=== PATIENT | male | born 1960 | race Two or more races ===

== ENCOUNTER 2019-09-08 08:39 | Inpatient (IN) | payer MEDICAID, OTHER ==
[~2019-09-08] VITALS: Ht 152.4 cm; Wt 53.6 kg
[2019-09-08] MEDS ORDERED: SODIUM CHLORIDE 0.9% 500 ML IVB ONE (08:44)
[2019-09-08 09:39] LABS: Hemoglobin 12.4 g/dL (13.5-17.5); Mean Corpuscular Hemoglobin 31.2 pg (28.0-32.0); Mean Corpuscular Hgb Conc. 33.5 g/dL (32.0-36.0); Platelet Count (auto) 201 10^3/uL (140-450); Red Blood Cells 3.98 10^6/uL (4.5-5.90); Red Cell Distribution Width 14.1 % (11.8-14.3); White Blood Cell 10.9 10^3/uL (4.4-10.8)
[2019-09-08 09:48] LABS: Basophils % (manual) 0 (0.0-2.0); Blast Cells 0; Eosinophils % (manual) 0 (0-7); Metamyelocytes % 0; Myelocytes % 0; Promyelocytes % 0; Reactive Lymphocytes 0
[2019-09-08 09:59] LABS: Alanine Aminotransferase 30 U/L (16-61); Albumin 3.3 g/dL (3.4-5.0); Anion Gap 6 (5-15); Aspartate Aminotransferase 32 U/L (15-37); BUN/Creatinine Ratio 10.2; Blood Alcohol < 3.0 mg/dL (0-5); Blood Urea Nitrogen 19 mg/dL (7-18); Calcium 8.4 mg/dL (8.5-10.1); Carbon Dioxide 26 mmol/L (21-32); Chloride 106 mmol/L (98-107); GFR African American 48 mL/min; GFR Non-African American 40 mL/min; Glucose 78 mg/dL (74-106); Potassium 3.5 mmol/L (3.5-5.1); Sodium 138 mmol/L (136-145)
[2019-09-08 10:02] LABS: Alkaline Phosphatase 98 U/L (45-117); Bilirubin, Total 0.6 mg/dL (0.2-1.0); Total Protein 7.9 g/dL (6.4-8.2)
[2019-09-08 10:40] LABS: Band Neutrophils % (manual) 4; Lymphocytes % (manual) 6 (10.0-50.0); Monocytes % (manual) 5 (0-12)
[2019-09-08] MEDS ORDERED: cefTRIAXone 1GM/50ML D5W 50 ML IV ONE (12:00)
[2019-09-08] MEDS ORDERED: MORPHINE SULF INJ 2 MG/ML SYRINGE 1ML IV PRN ×2 (14:00)
[2019-09-08] MEDS ORDERED: NITROGLYCERIN 0.4 MG SL TAB SL PRN (14:00)
[2019-09-08] MEDS ORDERED: ONDANSETRON HCL 4 MG/2 ML VIAL IV PRN (14:00)
[2019-09-08] MEDS ORDERED: HYDROcodone-ACET 5/325MG TAB PO PRN (14:00)
[2019-09-08] MEDS ORDERED: ACETAMINOPHEN 500 MG TAB PO PRN (14:00)
[2019-09-08] MEDS: AZITHROMYCIN 500MG/ 250ML 250 ML IV SCH (14:32)
[2019-09-08] MEDS: SODIUM CHLORIDE 0.9% 1,000 ML IV SCH (14:34)
[2019-09-08 14:53] VITALS: BP 100/50
[2019-09-08] MEDS: ALBUTEROL SULF 2.5 MG/0.5ML(0.5%) NEB SOLN NEB SCH (18:02)
[2019-09-08] MEDS: BUDESONIDE (INHALATION) 0.5 MG/2 ML NEB NEB SCH (18:02)
[2019-09-08] MEDS: IPRATROPIUM BROM 0.5 MG/2.5ML INH SOL NEB SCH (18:02)
[2019-09-08 20:45] VITALS: BP 108/61
--- NOTE | 2019-09-08 20:45 | NUR ---
Telemetry admit from [facility] admitted to Telemetry unit after SBAR received from Annmarie PEARSON. Patient oriented to Loretta Royal RN primary RN, unit, room, bed, and unit policies regarding patient care and visiting hours. Patient now on continuous telemetry monitoring, tele box #34 and telemetry reading on arrival to unit is NSR. Patient weighed by bedscale and encouraged to call if they need something. All questions and concerns addressed, patient verbalized understanding.
--- NOTE | 2019-09-08 20:45 | NUR ---
Opening Shift Note Assumed care of patient, awake, ALOC. No S/S of distress/SOB or pain. On room air and on bedrest. Incontinent. Indonesian speaking only. Bed in lowest locked position, side rails up x2, call light within reach. Sitter at bedside. Instructed on POC and to call for assist PRN, will continue to monitor for changes Q1hr and PRN.
[2019-09-09] MEDS: SODIUM CHLORIDE 0.9% 1,000 ML IV SCH ×2 (04:11→18:55)
[2019-09-09 05:21] VITALS: BP 93/52
[2019-09-09] MEDS: ALBUTEROL SULF 2.5 MG/0.5ML(0.5%) NEB SOLN NEB SCH ×3 (08:02→18:57)
[2019-09-09] MEDS: IPRATROPIUM BROM 0.5 MG/2.5ML INH SOL NEB SCH ×3 (08:02→18:57)
[2019-09-09] MEDS: BUDESONIDE (INHALATION) 0.5 MG/2 ML NEB NEB SCH ×2 (08:02→18:57)
[2019-09-09] MEDS ORDERED: CYANOCOBALAMIN (B-12) 1000 MCG/1 ML VIAL IM ONE (08:45)
[2019-09-09] MEDS ORDERED: LORazepam 2MG/ML-1ML VIAL IV PRN (08:45)
[2019-09-09] MEDS: cefTRIAXone 1GM/50ML D5W 50 ML IV SCH (08:48)
[2019-09-09 09:00] VITALS: BP 90/45
[2019-09-09 09:34] LABS: Folate (Folic Acid) 11.76 ng/mL (5.38-24)
--- NOTE | 2019-09-09 09:50 | NUR ---
MEDICATION REFUSED One time order of Vitamin B12 IM ordered by MD. Patient refused injection. See EMAR for complete details of order.
[2019-09-09 10:01] LABS: Hemoglobin 9.9 g/dL (13.5-17.5)
[2019-09-09 10:05] LABS: Basophils # (auto) 0 10 ^3/uL (0-0.2); Basophils % (auto) 0.1 % (0.0-2.0); Eosinophils # (auto) 0 10 ^3/uL (0-0.8); Lymphocytes # (auto) 1.3 10 ^3/uL (0.4-5.4); Lymphocytes % (auto) 11.2 % (10.0-50.0); Mean Corpuscular Hemoglobin 31.8 pg (28.0-32.0); Mean Corpuscular Hgb Conc. 34.1 g/dL (32.0-36.0); Mean Corpuscular Volume 93.3 fL (80.0-100.0); Monocytes # (auto) 0.4 10 ^3/uL (0-1.3); Monocytes % (auto) 3.3 % (0.0-12.0); Neutrophils # (auto) 9.9 10 ^3/uL (1.6-8.6); Neutrophils % (auto) 85.4 % (37.0-80.0); Platelet Count (auto) 162 10^3/uL (140-450); Red Blood Cells 3.11 10^6/uL (4.5-5.90); Red Cell Distribution Width 14.3 % (11.8-14.3); White Blood Cell 11.6 10^3/uL (4.4-10.8)
[2019-09-09] MEDS: AZITHROMYCIN 500MG/ 250ML 250 ML IV SCH (10:05)
[2019-09-09] MEDS: CYANOCOBALAMIN 500 MCG TAB PO SCH (10:05)
[2019-09-09] MEDS: FAMOTIDINE 20 MG TAB PO SCH (10:05)
[2019-09-09 10:22] LABS: Calcium 8.3 mg/dL (8.5-10.1); Potassium 3.7 mmol/L (3.5-5.1)
[2019-09-09 12:48] VITALS: BP 113/63
--- NOTE | 2019-09-09 15:00 | NUR ---
NURSE COMMUNICATION Family members at bedside concerned about language barrier. Family requesting to have a special services coordinator tomorrow upon doctor rounds/consults. This nurse will endorse request to [facility] nurse.
[2019-09-09 17:00] VITALS: BP 114/64
[2019-09-09 17:55] LABS: Urine WBC None Seen /hpf (0 - 3)
[2019-09-09 18:35] LABS: Urine Bacteria NONE SEEN /hpf (None Seen); Urine Blood TRACE /uL (Negative); Urine Specific Gravity 1.008 (1.001-1.035)
--- NOTE | 2019-09-09 19:07 | NUR ---
Respiratory note: PRE MED NEB TX SPO2 NOTED AT 86% ON ROOM AIR. POST MED NEB TX SPO2 NOTED AT 99%. NASAL CANNULA LEFT AT BEDSIDE IN THE EVENT OF DESATURATION. REBRANDER NOTIFIED, WILL NOTIFY RN. WILL CONTINUE TO MONITOR.
--- NOTE | 2019-09-09 19:40 | NUR ---
Opening Shift Note Assumed care of patient, awake, AAOx1 to self. No S/S of distress/SOB or pain. On room air and on bedrest. PT evaluation still pending. Patient is incontinent and Lao speaking only. Bed in lowest locked position, side rails up x2, call light within reach. Sitter at bedside. Instructed on POC and to call for assist PRN, will continue to monitor for changes Q1hr and PRN.
--- NOTE | 2019-09-09 19:55 | NUR ---
CLOSING SHIFT NOTE Patient currently in bed sleeping. No s/s of distress noted. Patient family member at bedside and sitter in the room. Will endorse care to SERGIO Blackburn.
[2019-09-09 21:56] VITALS: BP 112/56
[2019-09-09 23:59] VITALS: BP 120/75
[2019-09-10 04:11] VITALS: BP 115/67
[2019-09-10] MEDS: SODIUM CHLORIDE 0.9% 1,000 ML IV SCH ×2 (06:00→19:20)
[2019-09-10] MEDS: ALBUTEROL SULF 2.5 MG/0.5ML(0.5%) NEB SOLN NEB SCH ×3 (06:29→18:16)
[2019-09-10] MEDS: IPRATROPIUM BROM 0.5 MG/2.5ML INH SOL NEB SCH ×3 (06:30→18:16)
[2019-09-10] MEDS: BUDESONIDE (INHALATION) 0.5 MG/2 ML NEB NEB SCH ×2 (06:30→18:16)
[2019-09-10 06:43] LABS: Basophils # (auto) 0 10 ^3/uL (0-0.2); Basophils % (auto) 0.1 % (0.0-2.0); Eosinophils # (auto) 0 10 ^3/uL (0-0.8); Eosinophils % (auto) 0.1 % (0.0-7.0); Hematocrit 31.1 % (41.0-53.0); Hemoglobin 10.6 g/dL (13.5-17.5); Lymphocytes % (auto) 11.9 % (10.0-50.0); Mean Corpuscular Hemoglobin 31.5 pg (28.0-32.0); Mean Corpuscular Hgb Conc. 34.2 g/dL (32.0-36.0); Mean Corpuscular Volume 92.1 fL (80.0-100.0); Monocytes # (auto) 0.4 10 ^3/uL (0-1.3); Monocytes % (auto) 4.7 % (0.0-12.0); Neutrophils # (auto) 6.9 10 ^3/uL (1.6-8.6); Neutrophils % (auto) 83.2 % (37.0-80.0); Platelet Count (auto) 176 10^3/uL (140-450); Red Blood Cells 3.38 10^6/uL (4.5-5.90); Red Cell Distribution Width 13.9 % (11.8-14.3); White Blood Cell 8.3 10^3/uL (4.4-10.8)
[2019-09-10 06:55] LABS: Calcium 8.5 mg/dL (8.5-10.1); Magnesium 1.9 mg/dL (1.6-2.6); Potassium 3.7 mmol/L (3.5-5.1)
[2019-09-10 06:57] LABS: BUN/Creatinine Ratio 12.9
--- NOTE | 2019-09-10 07:20 | NUR ---
Opening Shift Note: Assumed care of patient. Patient A&Ox1 with sitter/hearing aid mechanic bedside. Patient sitting up eating with no S/S of distress, respirations even and non-labored. Patient tolerated assessment well. Patient incontinent on admit. but now toilets with minimal assistance. LBM 09/08/19. PT eval. pending along with Brain/EEG MRI. Antibiotics running. Bed in lowest, locked position with side rails up x2. Sitter bedside. Will continue to monitor Q1h and PRN.
[2019-09-10] MEDS: cefTRIAXone 1GM/50ML D5W 50 ML IV SCH (08:45)
[2019-09-10 09:00] VITALS: BP 105/51
--- NOTE | 2019-09-10 10:30 | NUR ---
ROUNDS Dr Seals at bedside for rounds, new orders received and followed through. Patient and caregiver, Sunitha, at bedside, updated on plan of care, verbalized understanding.
[2019-09-10] MEDS: FAMOTIDINE 20 MG TAB PO SCH (11:09)
[2019-09-10] MEDS: CYANOCOBALAMIN 500 MCG TAB PO SCH (11:09)
[2019-09-10] MEDS: AZITHROMYCIN 500MG/ 250ML 250 ML IV SCH (11:10)
[2019-09-10 13:00] VITALS: BP 114/64
--- NOTE | 2019-09-10 14:19 | NUR ---
PT Bedside Patient ambulating hallways with PT.
[2019-09-10 17:00] VITALS: BP 117/69
--- NOTE | 2019-09-10 18:45 | NUR ---
IV While patient was getting up to go to the bathroom, he accidently pulled hi IV out. Patient refusing to allow me to restart at this time. Will inform night nurse.
--- NOTE | 2019-09-10 19:20 | NUR ---
Opening Shift Note Assumed care of patient. Patient is awake and resting comfortably with sitter at bedside. No S/S of distress/SOB or pain. Will continue to monitor for changes Q1hr and PRN. Bed locked in lowest position and bed rails up x2. Call light within reach.
--- NOTE | 2019-09-10 19:22 | NUR ---
Care endorsed to MICHEL Hanna, night nurse.
[2019-09-10 22:00] VITALS: BP 112/60
[2019-09-11 05:00] VITALS: BP 125/72
[2019-09-11] MEDS: ALBUTEROL SULF 2.5 MG/0.5ML(0.5%) NEB SOLN NEB SCH ×3 (07:39→12:17)
[2019-09-11] MEDS: IPRATROPIUM BROM 0.5 MG/2.5ML INH SOL NEB SCH ×3 (07:39→12:17)
--- NOTE | 2019-09-11 08:10 | NUR ---
Opening Note Assumed care of patient, he is A & O x1, no s/s of distress. Comfortable at this time. Caregiver Sunitha at bedside. He is ambulatory with standby assistance. Caregiver states "he normally walks on his own, feeds himself, and showers himself". Bed is in lowest, locked position, call light within reach, sitter at bedside. Will continue to monitor Q1h and PRN.
[2019-09-11 08:56] VITALS: BP 84/56
[2019-09-11] MEDS: SODIUM CHLORIDE 0.9% 1,000 ML IV SCH (08:59)
[2019-09-11] MEDS: cefTRIAXone 1GM/50ML D5W 50 ML IV SCH (09:00)
[2019-09-11] MEDS: CYANOCOBALAMIN 500 MCG TAB PO SCH (09:00)
[2019-09-11] MEDS: FAMOTIDINE 20 MG TAB PO SCH (09:01)
[2019-09-11] MEDS: AZITHROMYCIN 500MG/ 250ML 250 ML IV SCH (10:00)
[2019-09-11 10:15] LABS: BUN/Creatinine Ratio 11.9; Calcium 8.7 mg/dL (8.5-10.1)
[2019-09-11 10:23] LABS: Potassium 4.1 mmol/L (3.5-5.1)
[2019-09-11] MEDS: BUDESONIDE (INHALATION) 0.5 MG/2 ML NEB NEB SCH (12:18)
[2019-09-11 13:24] VITALS: BP 84/56
== END 2019-09-11 14:50 | disposition home or self-care (01) | DRG 720 ==
LOC: ER 08:39 → EDBD 08:39 → TELE 08:40 → TELE-CENTR 21:10 → CENTRAL 09-10 20:36
PROVIDERS: ADMIT Nurse Practitioner Acute Care; ATTEND Internal Medicine
DX: A41.9 Sepsis, unspecified organism (principal); N17.0 Acute kidney failure with tubular necrosis; G93.41 Metabolic encephalopathy; G30.9 Alzheimer's disease, unspecified; N18.3 Chronic kidney disease, stage 3 (moderate); J18.9 Pneumonia, unspecified organism; F02.80 Dementia in other diseases classified elsewhere, unspecified severity, without behavioral disturbance, psychotic disturbance, mood disturbance, and anxiety; Q90.9 Down syndrome, unspecified; E88.09 Other disorders of plasma-protein metabolism, not elsewhere classified; R26.9 Unspecified abnormalities of gait and mobility; E53.8 Deficiency of other specified B group vitamins; Z90.49 Acquired absence of other specified parts of digestive tract; Z83.3 Family history of diabetes mellitus; Z82.3 Family history of stroke; Z82.49 Family history of ischemic heart disease and other diseases of the circulatory system; Z82.0 Family history of epilepsy and other diseases of the nervous system
CPT/HCPCS: 36415; 70450; 71045; 80048; 80053; 80320; 81001; 82024; 82607; 82746; 83605; 83735; 83970; 84146; 84443; 85007; 85025; 85027; 87040; 87086; 87804; 93005; 94640; 96361; 96365; 96366; 96367; 97116; 97163; 97530; 99291; G0378; J0696